=== PATIENT | male | born 1980 | race Caucasian/White ===

== ENCOUNTER 2019-07-22 10:39 | Emergency (ER) | payer MEDICAID, SELFPAY ==
[~2019-07-22] VITALS: Ht 175.3 cm; Wt 108.0 kg
[2019-07-22 10:47] VITALS: BP 170/93
[2019-07-22 11:43] LABS: BASOPHILS # (AUTO) 0.03 x10^3/uL (0-0.1); BASOPHILS % (AUTO) 0 % (0-1); EOSINOPHILS # (AUTO) 0.12 x10^3/uL (0-0.4); EOSINOPHILS % (AUTO) 1 % (1-7); LYMPHOCYTES # (AUTO) 0.91 x10^3/uL (1-3.4); LYMPHOCYTES % (AUTO) 6 % (22-44); MD NO; MEAN CORPUSCULAR HEMOGLOBIN 32.1 pg (27.5-34.5); MEAN CORPUSCULAR HGB CONC 33.5 g/dL (33.2-36.2); MEAN CORPUSCULAR VOLUME 95.8 fL (81-97); MEAN PLATELET VOLUME 8.3 fL (7.4-10.4); MONOCYTES # (AUTO) 1.34 x10^3/uL (0.2-0.8); MONOCYTES % (AUTO) 9 % (2-9); NEUTROPHILS # (AUTO) 11.91 x10^3/uL (1.8-6.8); NEUTROPHILS % (AUTO) 83 % (42-75); PLATELET COUNT 264 x10^3/uL (130-400); RED BLOOD COUNT 5.37 x10^6/uL (4.38-5.82); RED CELL DISTRIBUTION WIDTH 13.3 % (9.4-14.8)
[2019-07-22 11:53] LABS: ALBUMIN 3.7 g/dL (3.4-5.0); ANION GAP 6 mmol/L (5-15); CALCIUM 9.2 mg/dL (8.5-10.1); CHLORIDE 105 mmol/L (98-107)
[2019-07-22 11:56] LABS: ALANINE AMINOTRANSFERASE 67 U/L (12-78); ALKALINE PHOSPHATASE 128 U/L (45-117); BILIRUBIN,TOTAL 0.7 mg/dL (0.2-1.0); CREATININE 1.16 mg/dL (0.7-1.3); TOTAL PROTEIN 8.9 g/dL (6.4-8.2)
== END 2019-07-22 12:14 | disposition home or self-care (01) ==
LOC: ED 11:45
DX: K29.00 Acute gastritis without bleeding (principal); H66.003 Acute suppurative otitis media without spontaneous rupture of ear drum, bilateral; D72.829 Elevated white blood cell count, unspecified; R11.2 Nausea with vomiting, unspecified
CPT/HCPCS: 36415; 80053; 83690; 85025; 99283